=== PATIENT | male | born 1955 | race Caucasian/White ===

== ENCOUNTER 2024-08-21 00:40 | Outpatient (CLI) | payer MEDICARE, OTHER, SELFPAY ==
--- NOTE | 2024-08-21 15:30 | DI.RAD_ITS ---
Exam(s) RF MODIFIED SPEECH BA SWALLOW EXAM: RF MODIFIED SPEECH BA SWALLOW CLINICAL HISTORY: Evaluate for aspiration,chronic cough,dysphonia,rivera syndrome TECHNIQUE: Modified barium swallow was performed in conjunction with speech pathology. CONTRAST MATERIAL: Multiple consistencies of oral barium contrast were administered. COMPARISON: No exams were available for comparison FINDINGS: There was laryngeal penetration seen with consecutive sips of thin liquid. There is no evidence of aspiration with any consistency. There is mild vallecular residue. Speech pathology report to follow. IMPRESSION: Laryngeal penetration with thin liquids. RADIATION DOSE DELIVERED: kiran Del Real=12.6 mGy
[2024-08-21] MEDS: Barium Sulfate 700 MG TAB PO (15:32)
[2024-08-21] MEDS: Barium Sulfate Oral Paste 40% W/V 230 ML TUBE PO (15:33)
[2024-08-21] MEDS: Barium Sulfate 40% W/V 240 ML BTL PO (15:35)
[2024-08-21] MEDS: Barium Sulfate 81% w/w for Oral Suspension 148 GM BTL PO (15:38)
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
== END 2024-08-21 01:00 ==
PROVIDERS: PCP Family Medicine; Visit Provider Otolaryngology
DX: R13.14 Dysphagia, pharyngoesophageal phase (principal); R05.3 Chronic cough; R49.0 Dysphonia; Z15.09 Genetic susceptibility to other malignant neoplasm
CPT/HCPCS: 92526; 74221